=== PATIENT | female | born 1985 | race Caucasian/White ===

== ENCOUNTER 2019-06-19 23:27 | Emergency (ER) | payer OTHER ==
--- OUTSIDE RECORDS SUMMARY | 2019-06-19 23:30 | XMS REPORT ---
Author Author [facility] Address Unknown Phone Unavailable Care Team Providers Care Air Boatswain Name Role Phone Unavailable Unavailable Payers Payer Name Policy Type Policy Number Effective Date Expiration Date Problems This patient has no known problems. Allergies, Adverse Reactions, Alerts Allergy Name Allergy Type Status Severity Reaction(s) Onset Date Inactive Date Treating Clinician Comments No Known Allergies DA Active U 2017-10-17 00:00:00 Medications This patient has no known medications. Results Test Description Test Time Test Comments Text Results Atomic Results Result Comments SURGICAL SPECIMENS 2019-04-17 09:22:00 RUN DATE: 04/17/19 [facility] *LIVE* PAGE 1 RUN TIME: 922 Specimen Inquiry RUN USER: INTERFACE PATIENT: MAGALYS [facility]OLDEN [facility] [place] #: [id number] AGE/SX: 33/F ROOM: [facility] RE04/12/19REG DR: Jayant Benites MD : 84 BED: 1 DIS: 04/13/19 STATUS: DIS Wendy TLOC: SPEC #: [id number] RECD: 04/13/19 STATUS: EJANIE REQ #: [id number] ELIZABETH: 04/13/[address]: Jayant Benites MD ENTERED: 04/17/19 SP TYPE: SURG SPEC OTHR DR: Angel Paul MD ORDERED: GM LEVEL 4 CODES: [id number] - SOFT TISSUES, N [id number] - UTERUS, NOS COPIES TO: [place] [address] [facility] [address] [place], [place] [id number] Jayant Benites MD [address] [facility] [address] [place], [place] [address] PROCEDURES: GM LEVEL 4 (Incomplete) TISSUES: 1. SOFT TISSUES, NOS - Soft tissue, left fallopian tube, excisi 2. UTERUS, NOS - Uterus, cervix, excision FINAL DIAGNOSIS Soft tissue, left fallopian tube, excision: Paratubal cyst. Uterus, cervix, excision: Chronic cervicitis, squamous metaplasia, nabothian cysts; secretory endometrium; adenomyosis, fibrous serosal adhesions. GROSS AND MICROSCOPIC GROSS EXAMINATION: Received in formalin labeled left paratubal cyst is a 0.7 cm cystic structure filled with clear serous fluid submitted in one cassette (A). Received in formalin labeled uterus and cervix is a 146 g 10 x 6 x 4.5 cm uterus with a 3.4 cm in diameter cervix with purple mann ectocervix and 1 cm cervical os. The serosal surface is pink- mann and smooth the endometrium is mann and lush measuring up to 0.4 cm. The myometrium is pink-mann and trabeculated measuring up to 2.1 cm. Submitted (B)-(C) cervix (D)-(G) corpus uteri. MICROSCOPIC EXAMINATION: The cystic structure from the left fallopian tube CONTINUED ON NEXT PAGE RUN DATE: 04/17/19 [facility] *LIVE* PAGE 2 RUN TIME: 922 Specimen Inquiry RUN USER: INTERFACE SPEC #: [id number] PATIENT: MAGALYS GOLDEN #[id number] (Continued) GROSS AND MICROSCOPIC (Continued) is lined by simple columnar epithelium without atypia. The ectocervical mucosa has normal maturation. The endocervical mucosa has nabothian cysts, areas of squamous metaplasia and associated chronic inflammation. The endometrial glands show basal state. Benign endometrial glands and stroma are present in the myometrium. The myometrial nodules are composed of bundles of smooth muscle cells with no significant nuclear atypia or mitotic activity. The serosa shows fibrous adhesions. POST-OP DIAGNOSIS Acute abdomen PRE-OP DIAGNOSIS Acute abdomen Signed SIGNATURE ON Chadd Moreno Natasha RAZO 04/17/19 0922 END OF REPORT GLUBED 2019-04-13 20:27:00 GLUBED (test code=GLUBED) 81 MG/DL 70-110 Performed by certified catalyst operator gasoline at [facility] [id number] 11:53:00* Test Item Value Reference Range Comments GLUBED (test code=GLUBED) 82 MG/DL 70-110 Performed by certified catalyst operator gasoline at [facility] CBC W/AUTO [id number] 08:21:00* Test Item Value Reference Range Comments WHITE BLOOD CELL (test code=WBC) 11.39 x10 3/uL 4.5-11.0 RED BLOOD CELL (test code=RBC) 3.88 x10 6/uL 3.54-5.02 HEMOGLOBIN (test code=HGB) 11.9 g/dL 11.0-15.0 HEMATOCRIT (test code=HCT) 35.6 % 33.0-45.0 MEAN CELL VOLUME (test code=MCV) 91.8 fL 81.0-99.0 MEAN CELL HGB (test code=MCH) 30.7 pg 27.0-33.0 MEAN CELL HGB CONCETRATION (test code=MCHC) 33.4 g/dL 33.0-37.0 RED CELL DISTRIBUTION WIDTH CV (test code=RDW) 12.6 % 11.5-14.5 RED CELL DISTRIBUTION WIDTH SD (test code=RDW-SD) 41.6 fL 37.0-54.0 PLATELET COUNT (test code=PLT) 251 x10 3/uL 150-400 MEAN PLATELET VOLUME (test code=MPV) 10.2 fL 7.0-9.0 NEUTROPHIL % (test code=NT%) 78.6 % 56.0-77.0 IMMATURE GRANULOCYTE % (test code=IG%) 0.3 % 0.0-2.0 LYMPHOCYTE % (test code=LY%) 14.9 % 14.0-32.0 MONOCYTE % (test code=MO%) 5.6 % 4.8-9.0 EOSINOPHIL % (test code=EO%) 0.3 % 0.3-3.7 BASOPHIL % (test code=BA%) 0.3 % 0.0-2.0 NUCLEATED RBC % (test code=NRBC%) 0.0 % 0-0 NEUTROPHIL # (test code=NT#) 8.96 x10 3/uL 2.0-7.6 IMMATURE GRANULOCYTE # (test code=IG#) 0.03 x10 3/uL 0.00-0.03 LYMPHOCYTE # (test code=LY#) 1.70 x10 3/uL 1.0-3.8 MONOCYTE # (test code=MO#) 0.64 x10 3/uL 0.1-0.8 EOSINOPHIL # (test code=EO#) 0.03 x10 3/uL 0.0-0.2 BASOPHIL # (test code=BA#) 0.03 x10 3/uL 0.0-0.2 NUCLEATED RBC # (test code=NRBC#) 0.00 x10 3/uL 0.0-0.1 MANUAL DIFF REQUIRED (test code=MDIFF) NO [id number] 09:17:00* Test Item Value Reference Range Comments CREATININE (test code=CREAT) 0.8 mg/dL 0.6-1.3 HCG SERUM [id number] 09:17:00* Test Item Value Reference Range Comments HCG SERUM QUAL (test code=HCGQL) SERUM NEGATIVE NEGATIVE PROTHROMBIN [id number] 09:12:00* Test Item Value Reference Range Comments PROTHROMBIN TIME PATIENT (test code=PTP) 13.9 SECONDS 9.3-12.9 INTERNATIONAL NORMAL RATIO (test code=INR) 1.3 0.8-1.2 TARGET INR BY INDICATION Indication INR1. Prophylaxis of venous thrombosis 2.0 - 3.0 (orthopedic surgery), Prophylaxis of venous thrombosis (other than high-risk surgery), Treatment of Deep Vein Thrombosis/Pulmonary Embolism, Prevention of systemic embolism - Tissue heart valves, Acute Myocardial Infarction (to prevent systemic embolism), Valvular heart disease, Atrial Fibrillation, Bileaflet mechanical valve in aortic position.2. Mechanical prosthetic valves (high risk), 2.5 - 3.5 Presence of Lupus Anticoagulant or Antiphospholipid Antibodies, Prevention of systemic embolism - Acute Myocardial Infarction (to prevent recurrent infarct). THROMBOPLASTIN TIME [id number] 09:12:00* Test Item Value Reference Range Comments THROMBOPLASTIN TIME PARTIAL (test code=PTT) 37.1 Seconds 25.0-39.5 Therapeutic Range: 50.4 - 88.3 Seconds Effective 07/18/2018 [id number] 09:10:00* Test Item Value Reference Range Comments CREATININE (test code=CREAT) mg/dL 0.6-1.3 HCG SERUM [id number] 09:10:00* Test Item Value Reference Range Comments HCG SERUM QUAL (test code=HCGQL) SERUM NEGATIVE NEGATIVE CBC W/AUTO [id number] 09:03:00* Test Item Value Reference Range Comments WHITE BLOOD CELL (test code=WBC) 5.51 x10 3/uL 4.5-11.0 RED BLOOD CELL (test code=RBC) 4.13 x10 6/uL 3.54-5.02 HEMOGLOBIN (test code=HGB) 12.2 g/dL 11.0-15.0 HEMATOCRIT (test code=HCT) 38.4 % 33.0-45.0 MEAN CELL VOLUME (test code=MCV) 93.0 fL 81.0-99.0 MEAN CELL HGB (test code=MCH) 29.5 pg 27.0-33.0 MEAN CELL HGB CONCETRATION (test code=MCHC) 31.8 g/dL 33.0-37.0 RED CELL DISTRIBUTION WIDTH CV (test code=RDW) 12.5 % 11.5-14.5 RED CELL DISTRIBUTION WIDTH SD (test code=RDW-SD) 43.0 fL 37.0-54.0 PLATELET COUNT (test code=PLT) 242 x10 3/uL 150-400 MEAN PLATELET VOLUME (test code=MPV) 9.9 fL 7.0-9.0 NEUTROPHIL % (test code=NT%) 60.1 % 56.0-77.0 IMMATURE GRANULOCYTE % (test code=IG%) 0.5 % 0.0-2.0 LYMPHOCYTE % (test code=LY%) 29.6 % 14.0-32.0 MONOCYTE % (test code=MO%) 6.9 % 4.8-9.0 EOSINOPHIL % (test code=EO%) 2.4 % 0.3-3.7 BASOPHIL % (test code=BA%) 0.5 % 0.0-2.0 NUCLEATED RBC % (test code=NRBC%) 0.0 % 0-0 NEUTROPHIL # (test code=NT#) 3.31 x10 3/uL 2.0-7.6 IMMATURE GRANULOCYTE # (test code=IG#) 0.03 x10 3/uL 0.00-0.03 LYMPHOCYTE # (test code=LY#) 1.63 x10 3/uL 1.0-3.8 MONOCYTE # (test code=MO#) 0.38 x10 3/uL 0.1-0.8 EOSINOPHIL # (test code=EO#) 0.13 x10 3/uL 0.0-0.2 BASOPHIL # (test code=BA#) 0.03 x10 3/uL 0.0-0.2 NUCLEATED RBC # (test code=NRBC#) 0.00 x10 3/uL 0.0-0.1 MANUAL DIFF REQUIRED (test code=MDIFF) NO - CT HEAD/BRAIN W/O [id number] 01:33:00 Name: MAGALYS GOLDEN [facility] : 1985 Age/S: 32 / F [address] [place] [address] Unit #: [id number] Loc: [place] Hassan [address] Phys: Sonia Wray DO Acct: [id number] Dis Date: Status: REG ER PHONE #: [phone] Exam Date: 06/10/2018 0120 FAX #: [phone] Reason: headache EXAMS: CPT CODE: [id number] CT HEAD/BRAIN W/O CONT [id number] EXAM: CT BRAIN WITHOUT CONTRAST DATE: 06/10/2018 1:13 AM INDICATION: Headache. COMPARISON: None. TECHNIQUE: Noncontrast axial imaging of the brain was acquired from the vertex to the skull base. Reformatted coronal and sagittal images were provided for review. CT radiation dose DLP: 464.91 mGy-cm FINDINGS: No acute intracranial hemorrhage, midline shift, or mass effect is identified. The carroll-white matter differentiation is preserved. The ventricles and sulci are within normal limits, without evidence for hydrocephalus. The orbits, paranasal sinuses, and mastoid air cells are unremarkable. Optic disc drusen and c alcification. The calvarium and skull base are intact. IMP RESSION: 1. No acute intracranial abnormality. 2. Dylon ateral optic disc drusen and calcification, otherwise unremarkable appea howard to the orbits. SL: WR3-H Electron ically Signed by Doug Seaman on 06/10/2018 at 0133 Reported and signed by: Dillon Seaman M.D. CC: Sonia Wray DO; Angel sosa MD Technologist:RT Sophy(R)(CT) CTDI: DLP: Trnscb Date/Time: 06/10/2018 (013) [email or web address] Orig Print D/T: S: 06/10/2018 (0137) CTDI: DLP: PAGE 1 Signed Report
[2019-06-20] MEDS ORDERED: ORPHENADRINE CITRATE 30 MG/ML VIAL IM ONE (01:30)
[2019-06-20] MEDS ORDERED: KETOROLAC TROMETHAMINE 60 MG/2 ML VIAL IM ONE (01:30)
[2019-06-20] MEDS ORDERED: KETOROLAC TROMETHAMINE 60 MG/2 ML VIAL ONE (02:08)
[2019-06-20] MEDS ORDERED: CYCLOBENZAPRINE HCL 10 MG TAB ONE (02:10)
[2019-06-20] MEDS ORDERED: CYCLOBENZAPRINE HCL 10 MG TAB PO ONE (02:15)
[2019-06-20] MEDS ORDERED: PREDNISONE20 MG PO (02:35)
[2019-06-20] MEDS ORDERED: CYCLOBENZAPRINE5 MG PO (02:35)
[2019-06-20 02:53] VITALS: BP 113/59
== END 2019-06-20 02:53 | disposition home or self-care (01) ==
LOC: FSED 23:27
DX: S20.219A Contusion of unspecified front wall of thorax, initial encounter (principal); S70.11XA Contusion of right thigh, initial encounter; S80.01XA Contusion of right knee, initial encounter; S16.1XXA Strain of muscle, fascia and tendon at neck level, initial encounter; V43.52XA Car driver injured in collision with other type car in traffic accident, initial encounter; Y92.488 Other paved roadways as the place of occurrence of the external cause
CPT/HCPCS: 96372; 99283; J1885; J2360

== ENCOUNTER 2019-12-13 17:32 | Emergency (ER) | payer OTHER ==
[~2019-12-13] VITALS: Ht 160 cm; Wt 98.9 kg
[~2019-12-13 17:32] MED LIST: CYCLOBENZAPRINE5 MG PO; PREDNISONE20 MG PO
--- NOTE | 2019-12-13 17:40 | Emergency Department Note ---
History of Present Illnes History of Present Illness History of Present Illness This is a 34 year old female presents to the ED for elevated blood pressure with CP which radiates to L UE. Chest spasms started today. BP was 136/90 mmHg and when she she had rechecked her BP her DBP was 107 mmHg Onset (how long ago): week(s) (1) Radiation: Reports non-radiation Severity: mild Onset quality: gradual Duration (how long): week(s) (1) Timing of current episode: intermittent Progression: unchanged Chronicity: new Context: Denies recent illness, Denies recent surgery, Denies recent immobilization, Denies recent travel, Denies trauma/injury, Denies new medications, Denies hx of DVT/PE, Denies non-compliance w/ medications, Denies other Relieving factors: none Exacerbating factors: none Associated symptoms: Reports chest pain Treatments prior to arrival: none Past Medical/Family History Physician Review I have reviewed the patient's past medical and family history. Any updates have been documented here. Past Medical History Recent Fever: No Clinical Suspicion of Infectio: No New/Unexplained Change in Ment: No Past Medical History: None Past Surgical History: Hysterectomy Social History Smoking Cessation: Never Smoker Alcohol Use: None Any Illegal Drug Use: No Review of Systems Review of Systems Constitutional: Reports no symptoms EENTM: Reports no symptoms Cardiovascular: Reports chest pain Respiratory: Reports no symptoms Gastrointestinal: Reports no symptoms Genitourinary: Reports no symptoms Musculoskeletal: Reports no symptoms Integumentary: Reports no symptoms Neurological: Reports no symptoms Psychological: Reports no symptoms Endocrine: Reports no symptoms Hematological/Lymphatic: Reports no symptoms Physical Exam Related Data Allergies: Coded Allergies: No Known Allergies (Unverified , 12/13/19) Triage Vital Signs Vital Signs Date Time Temp Pulse Resp B/P (MAP) Pulse Ox O2 Delivery O2 Flow Rate FiO2 12/13/19 17:40 98.2 113 18 148/68 100 Room Air Vital signs reviewed: Yes Physical Exam CONSTITUTIONAL Constitutional: Present well-developed, Present well-nourished, Present morbidly obese HENT HENT: Present normocephalic, Present atraumatic, Present oropharynx clear/moist, Present nose normal HENT L/R: Present left ext ear normal, Present right ext ear normal EYES Eyes: Reports PERRL, Reports conjunctivae normal NECK Neck: Present ROM normal PULMONARY Pulmonary: Present effort normal, Present breath sounds normal CARDIOVASCULAR Cardiovascular: Present regular rhythm, Present heart sounds normal, Present capillary refill normal, Present normal rate, Present tachycardia GASTROINTESTINAL Abdominal: Present soft, Present nontender, Present bowel sounds normal GENITOURINARY Genitourinary: Present exam deferred SKIN Skin: Present warm, Present dry MUSCULOSKELETAL Musculoskeletal: Present ROM normal NEUROLOGICAL Neurological: Present alert, Present oriented x 3, Present no gross motor or sensory deficits PSYCHOLOGICAL Psychological: Present mood/affect normal, Present judgement normal Results Laboratory Lab results reviewed: Yes Laboratory comments UCG : neg UA : wnl CMP : K 3.6 CE : troponin NEGATIVE Imaging Imaging results reviewed: Yes Impressions [place] [address] Patient Name: MAGALYS GOLDEN MR #: [id number] : 1985 Age/Sex: 34/F Req #: [id number] Adm Physician: Ordered by: KG DAVIS DO Report #: [id number] Location: COUNTS INCLUDE [facility] BEDS AT [facility] Room/Bed: Procedure: [id number] HOPD/CXR 2 VIEW - HOPD Exam Date: 12/13/19 Exam Time: 1811 REPORT STATUS: Signed EXAMINATION: CXR 2 VIEW - HOPD INDICATION: Chest pain. COMPARISON: None FINDINGS: TUBES and LINES: None. LUNGS: Normal lung volumes. Lungs are clear. No consolidations. PLEURA: No pleural effusion or pneumothorax. HEART AND MEDIASTINUM: The cardiomediastinal silhouette is unremarkable. BONES AND SOFT TISSUES: No acute osseous lesion. Soft tissues are unremarkable. UPPER ABDOMEN: No free air under the diaphragm. IMPRESSION: No acute thoracic radiographic abnormality. Signed by: Matt Pat MD on 12/13/2019 6:39 PM Dictated By: MATT PAT MD 38 Transcribed By: MARTINA on 12/13/191838 COPY TO: KG DAVIS DO~ Procedures 12 Lead ECG Interpretation ECG Interpretation : ECG: ECG 1 Respiratory Coordinator: Interpreted by ED physician Date: Dec 13, 2019 Time: 17:58 Prior ECG tracings: reviewed Rhythm: sinus tachycardia Rate: tachycardia BPM: 105 QRS axis: normal ST segments normal: Yes T waves normal: Yes Clinical Impression: non-specific ECG Assessment & Plan Medical Decision Making MDM Diff Dx : ACS, PE , PTX, PNA, aortic dissection, angina, aortic aneurysm, costocondritis Assessment & Plan Final Impression: (1) Hypertension (2) Atypical chest pain Depart Disposition: HOME, SELF-retirement Meds Active Scripts Cyclobenzaprine Hcl (FLEXERIL) 5 Mg Tablet, 2 TAB PO Q8H PRN for MUSCLE SPASMS for 10 Days, #80 TAKE AFTER PREDNISONE TO CONTROL PAIN IF NEED BE Prov:BABS BYRD 06/20/19 Prednisone (PREDNISONE) 20 Mg Tab, 80 MG PO DAILY, #20 TAB PRN PAIN (TAKE ALL 4 PILLS AT ONCE) Prov:BABS BYRD 06/20/19 KG DAVIS DO Dec 13, 2019 17:40
[2019-12-13] MEDS ORDERED: ASPIRIN 325 MG TAB PO ONE (18:00)
--- OUTSIDE RECORDS SUMMARY | 2019-12-13 18:23 | XMS REPORT | Continuity of Care Document ---
Author Author [facility] Organization [facility] Address [address] [place] [address] Phone Unavailable Care Team Providers Care Waredresser Name Role Phone NONSTAFF PCP Unavailable Payers Payer Name Policy Type Policy Number Effective Date Expiration Date S ource Problems This patient has no known problems. Allergies, Adverse Reactions, Alerts Allergy Name Allergy Type Status Severity Reaction(s) Onset Date Inacti ve Date Treating Clinician Comments Source No Known Allergies DA Active U 2017-10-17 00:00:00 [facility] Medications Ordered Medication Name Filled Medication Name Start Date Stop Da te Current Medication? Ordering Clinician Indication Dosage Frequency Signature (SIG) Comments Components Source Cyclobenzaprine Hcl (Flexeril) 5 Mg Tablet Cyclobenzap rine Hcl (Flexeril) 5 Mg Tablet 2019-06-20 00:00:00 Yes Galdino Zhou 2 Every 8 Hours as needed for Muscle Spasms [facility] Prednisone 20 Mg Tab Prednisone 20 Mg Tab 2019-06-20 00:00:00 Yes Galdino Zhou 80 Daily [facility] Procedures This patient has no known procedures. Encounters Start Date/Time End Date/Time Encounter Type Admission Type [facility] Care Department Encounter ID Source 2019-06-19 23:27:00 2019-06-20 02:53:00 Departed Emergency Room [facility] [id number] [facility] Results Test Description Test Time Test Comments Results Result Comments Source SURGICAL SPECIMENS 2019-04-17 09:22:00 RUN DATE: 04/17/19 [facility] *LIVE* PAGE 1 RUN TIME: 922 Specimen Inquiry RUN USER: INTERFACE PATIENT: MAGALYS GOLDEN LOC: [facility] U #: [id number] AGE/SX: 33/F ROOM: [facility] RE04/12/19REG DR: Jayant Benites MD : 84 BED: 1 DIS: 04/13/19 STATUS: DIS Wendy TLOC: SPEC #: [id number] RECD: 04/13/19 STATUS: JEANIE REQ #: [id number] ELIZABETH: 04/13/19 [facility] DR: Jayant Benites MD ENTERED: 04/17/19 SP TYPE: SURG SPEC OTHR DR: Angel Paul MD ORDERED: LEVEL 4 CODES: [id number] - SOFT TISSUES, N [id number] - UTERUS, NOS [place]IES [place]: [place] [address] [facility] [address] [address] Jayant Benites MD [address] [facility], [address] [place] [address] PROCEDURES: GM LEVEL 4 (Incomplete) TISSUES: 1. [...] CONTINUED ON NEXT PAGE RUN DATE: 04/17/19 [facility] *LIVE* PAGE 2 RUN TIME: 922 Specimen Inquiry RUN USER: INTERFACE SPEC #: [id number] PATIENT: MAGALYS GOLDEN #[id number] (Continued) GROSS AND MICROSCOPIC (Continued) is lined [...] PRE-OP DIAGNOSIS Acute abdomen Signed SIGNATURE ON FILE Chadd Plunkett Natasha RAZO 04/17/19 0922 END OF REPORT GLUBED 2019-04-13 20:27:00 Test Item GLUBED (test code = GLUBED) 81 MG/DL 70-110 N Performed by certified cable machine operator at [facility] [id number] 11:53:00* Test Item Value Reference Range Interpretation Comments GLUBED (test code = GLUBED) 82 MG/DL 70-110 N Performed by certified cable machine operator at [facility] CBC W/AUTO [id number] 08:21:00* Test Item Value Reference Range Interpretation Comments WHITE BLOOD CELL (test code = WBC) 11.39 x10 3/uL 4.5-11.0 H RED BLOOD CELL (test code = RBC) 3.88 x10 6/uL 3.54-5.02 N HEMOGLOBIN (test code = HGB) 11.9 g/dL 11.0-15.0 N HEMATOCRIT (test code = HCT) 35.6 % 33.0-45.0 N MEAN CELL VOLUME (test code = MCV) 91.8 fL 81.0-99.0 N MEAN CELL HGB (test code = MCH) 30.7 pg 27.0-33.0 N MEAN CELL HGB CONCETRATION (test code = MCHC) 33.4 g/dL 33.0-37. 0 N RED CELL DISTRIBUTION WIDTH CV (test code = RDW) 12.6 % 11.5- 14.5 N RED CELL DISTRIBUTION WIDTH SD (test code = RDW-SD) 41.6 fL 37 .0-54.0 N PLATELET COUNT (test code = PLT) 251 x10 3/uL 150-400 N MEAN PLATELET VOLUME (test code = MPV) 10.2 fL 7.0-9.0 H NEUTROPHIL % (test code = NT%) 78.6 % 56.0-77.0 H IMMATURE GRANULOCYTE % (test code = IG%) 0.3 % 0.0-2.0 N LYMPHOCYTE % (test code = LY%) 14.9 % 14.0-32.0 N MONOCYTE % (test code = MO%) 5.6 % 4.8-9.0 N EOSINOPHIL % (test code = EO%) 0.3 % 0.3-3.7 N BASOPHIL % (test code = BA%) 0.3 % 0.0-2.0 N NUCLEATED RBC % (test code = NRBC%) 0.0 % 0-0 N NEUTROPHIL # (test code = NT#) 8.96 x10 3/uL 2.0-7.6 H IMMATURE GRANULOCYTE # (test code = IG#) 0.03 x10 3/uL 0.00-0.03 N LYMPHOCYTE # (test code = LY#) 1.70 x10 3/uL 1.0-3.8 N MONOCYTE # (test code = MO#) 0.64 x10 3/uL 0.1-0.8 N EOSINOPHIL # (test code = EO#) 0.03 x10 3/uL 0.0-0.2 N BASOPHIL # (test code = BA#) 0.03 x10 3/uL 0.0-0.2 N NUCLEATED RBC # (test code = NRBC#) 0.00 x10 3/uL 0.0-0.1 N MANUAL DIFF REQUIRED (test code = MDIFF) NO [id number] 09:17:00* Test Item Value Reference Range Interpretation Comments CREATININE (test code = CREAT) 0.8 mg/dL 0.6-1.3 N HCG SERUM [id number] 09:17:00* Test Item Value Reference Range Interpretation Comments HCG SERUM QUAL (test code = HCGQL) SERUM NEGATIVE NEGATIVE PROTHROMBIN [id number] 09:12:00* Test Item Value Reference Range Interpretation Comments PROTHROMBIN TIME PATIENT (test code = PTP) 13.9 SECONDS 9.3-12.9 H INTERNATIONAL NORMAL RATIO (test code = INR) 1.3 0.8-1.2 H TARGET INR BY INDICATION Indication INR1. Prophylaxis [...] Infarction (to prevent recurrent infarct). THROMBOPLASTIN TIME [id number] 09:12:00* Test Item Value Reference Range Interpretation Comments THROMBOPLASTIN TIME PARTIAL (test code = PTT) 37.1 Seconds 25.0-39. 5 N Therapeutic Range: 50.4 - 88.3 Seconds Effective 07/18/2018 [id number] 09:10:00* Test Item Value Reference Range Interpretation Comments CREATININE (test code = CREAT) mg/dL 0.6-1.3 HCG SERUM [id number] 09:10:00* Test Item Value Reference Range Interpretation Comments HCG SERUM QUAL (test code = HCGQL) SERUM NEGATIVE NEGATIVE CBC W/AUTO [id number] 09:03:00* Test Item Value Reference Range Interpretation Comments WHITE BLOOD CELL (test code = WBC) 5.51 x10 3/uL 4.5-11.0 N RED BLOOD CELL (test code = RBC) 4.13 x10 6/uL 3.54-5.02 N HEMOGLOBIN (test code = HGB) 12.2 g/dL 11.0-15.0 N HEMATOCRIT (test code = HCT) 38.4 % 33.0-45.0 N MEAN CELL VOLUME (test code = MCV) 93.0 fL 81.0-99.0 N MEAN CELL HGB (test code = MCH) 29.5 pg 27.0-33.0 N MEAN CELL HGB CONCETRATION (test code = MCHC) 31.8 g/dL 33.0-37. 0 L RED CELL DISTRIBUTION WIDTH CV (test code = RDW) 12.5 % 11.5- 14.5 N RED CELL DISTRIBUTION WIDTH SD (test code = RDW-SD) 43.0 fL 37 .0-54.0 N PLATELET COUNT (test code = PLT) 242 x10 3/uL 150-400 N MEAN PLATELET VOLUME (test code = MPV) 9.9 fL 7.0-9.0 H NEUTROPHIL % (test code = NT%) 60.1 % 56.0-77.0 N IMMATURE GRANULOCYTE % (test code = IG%) 0.5 % 0.0-2.0 N LYMPHOCYTE % (test code = LY%) 29.6 % 14.0-32.0 N MONOCYTE % (test code = MO%) 6.9 % 4.8-9.0 N EOSINOPHIL % (test code = EO%) 2.4 % 0.3-3.7 N BASOPHIL % (test code = BA%) 0.5 % 0.0-2.0 N NUCLEATED RBC % (test code = NRBC%) 0.0 % 0-0 N NEUTROPHIL # (test code = NT#) 3.31 x10 3/uL 2.0-7.6 N IMMATURE GRANULOCYTE # (test code = IG#) 0.03 x10 3/uL 0.00-0.03 N LYMPHOCYTE # (test code = LY#) 1.63 x10 3/uL 1.0-3.8 N MONOCYTE # (test code = MO#) 0.38 x10 3/uL 0.1-0.8 N EOSINOPHIL # (test code = EO#) 0.13 x10 3/uL 0.0-0.2 N BASOPHIL # (test code = BA#) 0.03 x10 3/uL 0.0-0.2 N NUCLEATED RBC # (test code = NRBC#) 0.00 x10 3/uL 0.0-0.1 N MANUAL DIFF REQUIRED (test code = MDIFF) NO - CT HEAD/BRAIN W/O [id number] 01:33:00 Name: MAGALYS GOLDEN [facility] : 1985 Age/S: 32 / F [address] [place] [address] Unit #: [id number] Loc: [place] [address] Phys: Sonia Wray DO Acct: [id number] Dis Date: Status: REG ER PHONE #: [phone] Exam Date: 06/10/2018 0120 FAX #: [phone] Reason: headache EXAMS: CPT CODE: [id number] CT HEAD/BRAIN W/O CONT [id number] EXAM: CT BRAIN WITHOUT CONTRAST DATE: 06/10/2018 [...] CC: Sonia Wray DO; Angel sosa MD Technologist:Martin Bell RT(R)(CT) CTDI: DLP: Trnscb Date/Time: 06/10/2018 (013) [email or web address] Orig Print D/T: S: 06/10/2018 (136) CTDI: DLP: PAGE 1 Signed Report
--- NOTE | 2019-12-13 18:42 | Diagnostic Imaging Report ---
EXAMINATION: CXR 2 VIEW - HOPD INDICATION: Chest pain. COMPARISON: None FINDINGS: TUBES and LINES: None. LUNGS: Normal lung volumes. Lungs are clear. No consolidations. PLEURA: No pleural effusion or pneumothorax. HEART AND MEDIASTINUM: The cardiomediastinal silhouette is unremarkable. BONES AND SOFT TISSUES: No acute osseous lesion. Soft tissues are unremarkable. UPPER ABDOMEN: No free air under the diaphragm. IMPRESSION: No acute thoracic radiographic abnormality. Signed by: Ashlyn Choi MD on 12/13/2019 6:39 PM
== END 2019-12-13 19:12 | disposition home or self-care (01) ==
LOC: FSED 18:20
DX: R07.89 Other chest pain (principal); I10 Essential (primary) hypertension
CPT/HCPCS: 71046; 80053; 81003; 81025; 82553; 84484; 85025; 93005; 99284

== ENCOUNTER 2020-08-11 16:15 | Emergency (ER) | payer OTHER ==
[~2020-08-11] VITALS: Ht 12.7 cm; Wt 97.1 kg
[2020-08-11] MEDS ORDERED: DOXYCYCLINE HY100 MG PO (16:52)
[2020-08-11] MEDS ORDERED: IBUPROFEN IB200 MG PO (16:52)
[2020-08-11] MEDS ORDERED: CLEOCIN HCL300 MG PO (16:52)
== END 2020-08-11 17:29 | disposition home or self-care (01) ==
LOC: FSED 16:25
DX: L03.311 Cellulitis of abdominal wall (principal); F17.210 Nicotine dependence, cigarettes, uncomplicated
CPT/HCPCS: 99282

== ENCOUNTER 2021-01-23 23:00 | Emergency (ER) | payer OTHER ==
[~2021-01-23] VITALS: Ht 160 cm; Wt 100.2 kg
[~2021-01-23 23:00] MED LIST changes: +CLEOCIN HCL300 MG PO; +DOXYCYCLINE HY100 MG PO; +IBUPROFEN IB200 MG PO
[2021-01-23] MEDS ORDERED: DOXYCYCLINE HY100 MG PO (23:23)
[2021-01-23] MEDS ORDERED: IBUPROFEN IB200 MG PO (23:23)
[2021-01-23 23:24] VITALS: BP 130/83
== END 2021-01-23 23:25 | disposition home or self-care (01) ==
LOC: FSED 23:20
DX: S91.331A Puncture wound without foreign body, right foot, initial encounter (principal); L08.9 Local infection of the skin and subcutaneous tissue, unspecified; W25.XXXA Contact with sharp glass, initial encounter; Y93.01 Activity, walking, marching and hiking; F17.210 Nicotine dependence, cigarettes, uncomplicated
CPT/HCPCS: 99282

== ENCOUNTER 2021-02-28 12:29 | Emergency (ER) | payer OTHER ==
[~2021-02-28] VITALS: Ht 160 cm; Wt 101.3 kg
[2021-02-28] MEDS ORDERED: PREDNISONE50 MG PO (13:11)
[2021-02-28] MEDS ORDERED: AUGMENTIN 875-1 EACH PO (13:11)
== END 2021-02-28 13:25 | disposition home or self-care (01) ==
LOC: FSED 12:33
DX: J03.90 Acute tonsillitis, unspecified (principal); B96.89 Other specified bacterial agents as the cause of diseases classified elsewhere
CPT/HCPCS: 83518; 99283

== ENCOUNTER 2021-06-14 22:49 | Emergency (ER) | payer OTHER ==
[~2021-06-14] VITALS: Ht 160 cm; Wt 103.9 kg
[~2021-06-14 22:49] MED LIST changes: +AUGMENTIN 875-1 EACH PO; +PREDNISONE50 MG PO
[2021-06-15] MEDS ORDERED: PREDNISONE20 MG PO (00:12)
[2021-06-15] MEDS ORDERED: VENTOLIN HFA18 GM INH (00:12)
[2021-06-15] MEDS ORDERED: AZITHROMYCIN250 MG PO (00:12)
[2021-06-15 00:18] VITALS: BP 148/77
== END 2021-06-15 00:18 | disposition home or self-care (01) ==
LOC: FSED 22:53
DX: R05.9 Cough, unspecified (principal); J06.9 Acute upper respiratory infection, unspecified; F17.210 Nicotine dependence, cigarettes, uncomplicated
CPT/HCPCS: 83518; 87400; 99282

== ENCOUNTER 2022-07-20 12:41 | Emergency (ER) | payer OTHER ==
[~2022-07-20] VITALS: Ht 160 cm; Wt 106.6 kg
[~2022-07-20 12:41] MED LIST changes: +AZITHROMYCIN250 MG PO; +VENTOLIN HFA18 GM INH
[2022-07-20] MEDS ORDERED: DEXAMETHASONE SOD PHOS INJ 4 MG/ML SDV ONE (13:55)
[2022-07-20] MEDS ORDERED: AMOX TR-K CLV1 EAC2 PO (13:58)
[2022-07-20] MEDS ORDERED: NAPHCON-A EYE D15 ML OU (14:00)
[2022-07-20] MEDS ORDERED: DEXAMETHASONE SOD PHOS INJ 4 MG/ML SDV IM ONE (14:15)
== END 2022-07-20 14:10 | disposition home or self-care (01) ==
LOC: FSED 12:51
DX: J01.90 Acute sinusitis, unspecified (principal); J02.9 Acute pharyngitis, unspecified; H10.11 Acute atopic conjunctivitis, right eye
CPT/HCPCS: 83518; 87400; 96372; 99283; J1100

== ENCOUNTER 2022-07-28 16:10 | Emergency (ER) | payer OTHER ==
[~2022-07-28] VITALS: Ht 160 cm; Wt 107.5 kg
[~2022-07-28 16:10] MED LIST changes: +AMOX TR-K CLV1 EAC2 PO; +NAPHCON-A EYE D15 ML OU
[2022-07-28] MEDS ORDERED: VENTOLIN HFA18 GM INH (17:43)
[2022-07-28] MEDS ORDERED: AZITHROMYCIN250 MG PO (17:43)
[2022-07-28] MEDS ORDERED: PREDNISONE20 MG PO (17:43)
== END 2022-07-28 18:03 | disposition home or self-care (01) ==
LOC: FSED 16:14
DX: R50.9 Fever, unspecified (principal); J18.9 Pneumonia, unspecified organism; R05.9 Cough, unspecified; R53.81 Other malaise
CPT/HCPCS: 71046; 83518; 87400; 99283; U0002